=== PATIENT | female | born 1995 | race Two or more races ===

== ENCOUNTER 2020-01-16 04:58 | Emergency (ER) | payer SELFPAY ==
[2020-01-16 05:45] LABS: ABSOLUTE BASOPHILS # (AUTO) 0.1 10^3/uL (0.0-0.2); ABSOLUTE EOSINOPHILS # (AUTO) 0.1 10^3/uL (0.0-0.6); ABSOLUTE LYMPHOCYTES (AUTO) 3.5 10^3/uL (0.5-4.7); ABSOLUTE MONOCYTES (AUTO) 0.6 10^3/uL (0.1-1.4); ABSOLUTE NEUT (AUTO) 6.1 10^3/uL (1.7-8.2); BASOPHILS % (AUTO) 0.5 % (0-2); EOSINOPHILS % (AUTO) 0.9 % (0-6); HEMATOCRIT 36.4 % (36.0-47.0); LYMPHOCYTES % (AUTO) 33.6 % (13-45); MEAN CORPUSCULAR HEMOGLOBIN 28.2 pg (27.0-33.4); MEAN CORPUSCULAR HGB CONC 33.1 g/dL (32.0-36.0); MEAN CORPUSCULAR VOLUME 85 fl (80-97); MONOCYTES % (AUTO) 6.1 % (3-13); PLATELET COUNT 294 10^3/uL (150-450); RED BLOOD COUNT 4.27 10^6/uL (3.72-5.28); RED CELL DISTRIBUTION WIDTH 14.2 % (11.5-14.0); SEGMENTED NEUTROPHILS % (AUTO) 58.9 % (42-78); TOTAL CELLS COUNTED % (AUTO) 100 %; WHITE BLOOD COUNT 10.4 10^3/uL (4.0-10.5)
[2020-01-16 05:53] LABS: AMORPHOUS SEDIMENT,URINE TRACE /HPF; APPEARANCE,URINE CLOUDY; BILIRUBIN,URINE NEGATIVE (NEGATIVE); COLOR,URINE YELLOW; GLUCOSE, URINE NEGATIVE (NEGATIVE); KETONES,URINE NEGATIVE (NEGATIVE); LEUKOCYTE ESTERASE,URINE NEGATIVE (NEGATIVE); NITRITE,URINE NEGATIVE (NEGATIVE); PROTEIN,URINE NEGATIVE (NEGATIVE); URINE SPECIFIC GRAVITY 1.016; UROBILINOGEN,URINE NEGATIVE mg/dL (<2.0)
[2020-01-16 06:02] LABS: ALBUMIN 4.4 g/dL (3.5-5.0); ALKALINE PHOSPHATASE 96 U/L (38-126); ANION GAP 7 (5-19); ASPARTATE AMINO TRANSFERASE 51 U/L (14-36); BILIRUBIN,TOTAL 0.2 mg/dL (0.2-1.3); BLOOD UREA NITROGEN 14 mg/dL (7-20); CALCIUM 9.6 mg/dL (8.4-10.2); CARBON DIOXIDE 29 mmol/L (22-30); CHLORIDE 102 mmol/L (98-107); GLUCOSE 127 mg/dL (75-110); POTASSIUM 3.7 mmol/L (3.6-5.0); TOTAL PROTEIN 7.6 g/dL (6.3-8.2)
[2020-01-16] MEDS ORDERED: MORPHINE SULFATE 10 MG/ML INJ IV ONE (09:40)
[2020-01-16] MEDS ORDERED: ONDANSETRON HCL INJ/PF 4 MG/2 ML SDV IV ONE (09:41)
[2020-01-16] MEDS ORDERED: NORMAL SALINE 1000 ML 1,000 ML IV ONE (09:41)
--- NOTE | 2020-01-16 10:22 | RADIOLOGY REPORT (SQ) ---
EXAM DESCRIPTION: ACUTE ABDOMEN SERIES IMAGES COMPLETED DATE/TIME: 01/16/2020 10:03 am REASON FOR STUDY: ruq pain COMPARISON: None. NUMBER OF VIEWS: Three views. TECHNIQUE: Frontal chest, supine abdomen and upright/decubitus abdomen radiographic images acquired. LIMITATIONS: None. FINDINGS: CHEST: Lungs clear of infiltrates. FREE AIR: None. No abnormal gas collections. BOWEL GAS PATTERN: Nonobstructive pattern. Stool within the ascending colon and hepatic flexure. No dilated loops or air fluid levels. CALCIFICATIONS: No suspicious calcifications. HARDWARE: None in the abdomen. SOFT TISSUES: No gross mass or suggestion of organomegaly. BONES: No acute fracture. No worrisome bone lesions. OTHER: No other significant finding. IMPRESSION: Nonobstructive bowel gas pattern. Stool within the ascending colon and hepatic flexure. TECHNICAL DOCUMENTATION: JOB ID: [id number] 2010 [employer]- All Rights Reserved Reading location - IP/workstation name: [email or web address]
--- NOTE | 2020-01-16 10:48 | RADIOLOGY REPORT (SQ) ---
EXAM DESCRIPTION: U/S ABDOMEN COMPLETE W/DOPPLER IMAGES COMPLETED DATE/TIME: 01/16/2020 10:36 am REASON FOR STUDY: ruq pain/elevated lfts COMPARISON: None. TECHNIQUE: Dynamic and static grayscale images acquired of the abdomen and recorded on PACS. Additio nal selected color Doppler and spectral images recorded. Note: Study does not meet criteria for complete doppler/duplex scan LIMITATIONS: None. FINDINGS: PANCREAS: No masses. Visualized pancreatic duct normal caliber. LIVER: No masses. Diffuse increased echogenicity and coarsened echotexture. LIVER VASCULATURE: Normal directional flow of the main portal vein and hepatic veins. GALLBLADDER: Minimal pericholecystic fluid. Several gallstones. No appreciable gallbladder wall thi ckening. Negative sonographic Reynolds's sign. ULTRASOUND-DETECTED REYNOLDS'S SIGN: Negative. INTRAHEPATIC DUCTS AND COMMON DUCT: CBD and intrahepatic ducts normal caliber. No filling defects. INFERIOR VENA CAVA: Normal flow. AORTA: No aneurysm. RIGHT KIDNEY: Normal size. Normal echogenicity. No solid or suspicious masses. No hydronephros is. No calcifications. LEFT KIDNEY: Normal size. Normal echogenicity. No solid or suspicious masses. No hydronephrosi s. No calcifications. SPLEEN: Normal size. No solid masses. PERITONEAL AND PLEURAL SPACES: No ascites or effusions. OTHER: No other significant finding. IMPRESSION: Cholelithiasis. Minimal pericholecystic fluid common which early acute cholecystitis ca nnot be excluded. Hepatic steatosis. TECHNICAL DOCUMENTATION: JOB ID: [id number] 2010 [employer]- All Rights Reserved Reading location - IP/workstation name: [email or web address]
--- NOTE | 2020-01-16 12:36 | ER Document Report ---
Entered by RAYMOND STUBBS SCRIBE 01/16/20 0939 Acting as scribe for:SY VELAZQUEZ MD ED GI/ - General Chief Complaint: Abdominal Pain Stated Complaint: STOMACH PAIN Time Seen by Provider: 01/16/20 07:42 Information source: Patient Notes: This 24 year old female patient presents to the emergency department today with complaints of RUQ abdominal pain. Patient states the pain is 5/5, sharp, and began at 2 am this morning. Patient states last night there was no abdominal pain and her bowel movement was normal. Denies the pain radiating, nausea, fever, or cough. Patient states she had similar abdominal pain x2 months ago, it went away by itself, and did not do a follow up. Patient states she has not eaten this morning and has taken tylenol when her pain started. Patient states bowel movement and urinating does not relieve or exacerbate her abdominal pain. - Related Data Allergies/Adverse Reactions: No Known Allergies Allergy (Unverified 01/16/20 05:24) Past Medical History - General Information source: Patient - Social History Smoking Status: Never Smoker Cigarette use (# per day): No Chew tobacco use (# tins/day): No Frequency of alcohol use: None Drug Abuse: None Lives with: Family Family History: Reviewed & Not Pertinent Patient has homicidal ideation: No Past Surgical History: Reports: None Review of Systems - Review of Systems Constitutional: See HPI. denies: Fever EENT: No symptoms reported Cardiovascular: No symptoms reported Respiratory: See HPI. denies: Cough Gastrointestinal: See HPI, Abdominal pain - RUQ, Last bowel movement - yesterday , normal. denies: Nausea Genitourinary: See HPI Female Genitourinary: No symptoms reported Musculoskeletal: No symptoms reported Skin: No symptoms reported Hematologic/Lymphatic: No symptoms reported Neurological/Psychological: No symptoms reported -: Yes All other systems reviewed and negative Physical Exam - Vital signs Vitals: Temp Pulse Resp BP Pulse Ox 97.7 F 53 L 12 155/110 H 100 01/16/20 05:05 01/16/20 05:05 01/16/20 05:05 01/16/20 05:05 01/16/20 05:05 - General General appearance: Appears well, Alert - HEENT Head: Normocephalic, Atraumatic Eyes: Normal Pupils: PERRL - Respiratory Respiratory status: No respiratory distress Chest status: Nontender Breath sounds: Normal Chest palpation: Normal - Cardiovascular Rhythm: Regular Heart sounds: Normal auscultation Murmur: No - Abdominal Inspection: Normal Distension: No distension Bowel sounds: Normal Tenderness: Tender - RUQ. No: Guarding, Rebound - Back Back: Nontender - Extremities General upper extremity: Normal inspection. No: Edema General lower extremity: Normal inspection. No: Edema - Neurological Neuro grossly intact: Yes Cognition: Normal Orientation: AAOx4 Speech: Normal - Psychological Associated symptoms: Normal affect, Normal mood - Skin Skin Temperature: Warm Skin Moisture: Dry Skin Color: Normal Course - Re-evaluation Re-evalutation: 01/16/20 12:14 Patient reports that she is pain-free at this time. - Vital Signs Vital signs: Temp Pulse Resp BP Pulse Ox 97.9 F 67 12 109/66 98 01/16/20 09:51 01/16/20 09:51 01/16/20 05:05 01/16/20 09:51 01/16/20 09:51 01/16/20 12:14 Vital signs stable afebrile no acute process no complaints of abdominal pain nausea or vomiting at this time. - Laboratory Result Diagrams: 01/16/20 05:10 01/16/20 05:10 Laboratory results interpreted by me: 01/16/20 01/16/20 05:10 05:10 RDW 14.2 H Glucose 127 H AST 51 H ALT 95 H 01/16/20 12:15 Williams shows mild elevation in AST ALT. Patient's glucose of 127. Patient has a normal white blood cell count and is afebrile. Patient does have gallbladder biliary stones present no wall thickening and a minimal amount of pericholecystic fluid surrounding the gallbladder. There is no ductal dilatation to speak of. Patient has a normal white blood cell count. Patient does have a biliary colic and gallstones present and should follow-up with them surgeon to discuss further planning and management if there is any need to have surgery and to have it scheduled if indicated. Advised patient to follow a low- fat diet. - Diagnostic Test Radiology reviewed: Image reviewed, Reports reviewed Radiology results interpreted by me: 01/16/20 12:17 Acute abdominal series shows no acute process chest clear no infiltrates abdomen shows no acute process moderate stool noted in the ascending colon and at the ectatic flexure. No obstruction no free air. No stones seen. 01/16/20 12:17 Gallbladder ultrasound shows a gallbladder stones without obstruction, cholelithiasis. There is minimal fluid to suggest any pericholecystic fluid. No obstruction noted. Discharge - Discharge Clinical Impression: Biliary colic, Cholelithiasis, LFT elevation Condition: Stable Disposition: HOME, SELF-CARE Instructions: Gallbladder Disease ([facility]), Oral Narcotic Medication ([facility]) Prescriptions: Tramadol HCl [Ultram 50 mg Tablet] 50 mg PO Q4HP PRN #12 tab PRN Reason: Ondansetron [Zofran Odt 4 mg Tablet] 1 - 2 tab PO Q4H PRN #15 tab.rapdis PRN Reason: For Nausea/Vomiting I personally performed the services described in the documentation, reviewed and edited the documentation which was dictated to the scribe in my presence, and it accurately records my words and actions.
[2020-01-16 13:07] VITALS: BP 104/74
== END 2020-01-16 13:06 | disposition home or self-care (01) ==
LOC: ER 04:58
DX: K80.20 Calculus of gallbladder without cholecystitis without obstruction (principal); R74.0 Nonspecific elevation of levels of transaminase and lactic acid dehydrogenase [LDH]; R10.11 Right upper quadrant pain; R10.811 Right upper quadrant abdominal tenderness
CPT/HCPCS: 99284; 96361; 96374; 96375; 36415; 83690; 85025; 80053; 81001; 74022; 76700; 93976; J2270; J2405; J7030

== ENCOUNTER 2020-07-17 23:30 | Emergency (ER) | payer SELFPAY ==
[2020-07-18 01:47] LABS: APPEARANCE,URINE SLIGHTLY-CLOUDY; BILIRUBIN,URINE NEGATIVE (NEGATIVE); COLOR,URINE YELLOW; GLUCOSE, URINE NEGATIVE (NEGATIVE); KETONES,URINE NEGATIVE (NEGATIVE); LEUKOCYTE ESTERASE,URINE SMALL (NEGATIVE); NITRITE,URINE NEGATIVE (NEGATIVE); PROTEIN,URINE NEGATIVE (NEGATIVE); URINE SPECIFIC GRAVITY 1.029; UROBILINOGEN,URINE NEGATIVE mg/dL (<2.0)
[2020-07-18 01:48] LABS: ABSOLUTE BASOPHILS # (AUTO) 0.1 10^3/uL (0.0-0.2); ABSOLUTE EOSINOPHILS # (AUTO) 0.1 10^3/uL (0.0-0.6); ABSOLUTE LYMPHOCYTES (AUTO) 2.8 10^3/uL (0.5-4.7); ABSOLUTE MONOCYTES (AUTO) 0.5 10^3/uL (0.1-1.4); ABSOLUTE NEUT (AUTO) 8.1 10^3/uL (1.7-8.2); BASOPHILS % (AUTO) 0.5 % (0-2); EOSINOPHILS % (AUTO) 0.5 % (0-6); HEMATOCRIT 37.5 % (36.0-47.0); HEMOGLOBIN 12.4 g/dL (12.0-15.5); MEAN CORPUSCULAR HGB CONC 33.1 g/dL (32.0-36.0); MEAN CORPUSCULAR VOLUME 85 fl (80-97); MONOCYTES % (AUTO) 4.6 % (3-13); PLATELET COUNT 285 10^3/uL (150-450); RED BLOOD COUNT 4.44 10^6/uL (3.72-5.28); RED CELL DISTRIBUTION WIDTH 14.3 % (11.5-14.0); SEGMENTED NEUTROPHILS % (AUTO) 70.4 % (42-78); TOTAL CELLS COUNTED % (AUTO) 100 %; WHITE BLOOD COUNT 11.5 10^3/uL (4.0-10.5)
[2020-07-18 02:03] LABS: ALBUMIN 4.5 g/dL (3.5-5.0); ALKALINE PHOSPHATASE 81 U/L (38-126); ANION GAP 7 (5-19); ASPARTATE AMINO TRANSFERASE 49 U/L (14-36); BILIRUBIN,DIRECT 0.2 mg/dL (0.0-0.4); BILIRUBIN,TOTAL 0.3 mg/dL (0.2-1.3); BLOOD UREA NITROGEN 16 mg/dL (7-20); CALCIUM 9.9 mg/dL (8.4-10.2); CARBON DIOXIDE 29 mmol/L (22-30); CHLORIDE 104 mmol/L (98-107); GLUCOSE 116 mg/dL (75-110); POTASSIUM 4.1 mmol/L (3.6-5.0); TOTAL PROTEIN 7.8 g/dL (6.3-8.2)
[2020-07-18] MEDS ORDERED: MORPHINE SULFATE 10 MG/ML INJ IV ONE (05:25)
--- NOTE | 2020-07-18 05:26 | ER Document Report ---
ED GI/ - General Chief Complaint: Abdominal Pain Stated Complaint: STOMACH PAIN Time Seen by Provider: 07/18/20 05:18 Primary Care Provider: HUGH ALBA MD [ACTIVE STAFF] - Follow up as needed Mode of Arrival: Ambulatory Information source: Patient Notes: 25-year-old female presents to the emergency room complaining of worsening right upper quadrant pain since Saturday. States she was seen here last January was told she had cholelithiasis and will need to follow-up outpatient with a general surgeon. States she has been unable to follow-up due to lack of insurance. Was prescribed tramadol which she states she has been taking without relief. Complains of nausea but no vomiting. No fevers. No urinary symptoms. No COVID-19 exposure. TRAVEL OUTSIDE OF THE [place] IN LAST 30 DAYS: No - Related Data Allergies/Adverse Reactions: No Known Allergies Allergy (Unverified 01/16/20 05:24) Home Medications: Tramdol Past Medical History - General Information source: Patient - Social History Smoking Status: Never Smoker Frequency of alcohol use: None Drug Abuse: None Family History: Reviewed & Not Pertinent Patient has homicidal ideation: No Review of Systems - Review of Systems Constitutional: No symptoms reported EENT: No symptoms reported Cardiovascular: No symptoms reported Respiratory: No symptoms reported Gastrointestinal: Abdominal pain, Nausea. denies: Diarrhea, Vomiting Musculoskeletal: No symptoms reported Skin: No symptoms reported Neurological/Psychological: No symptoms reported -: Yes All other systems reviewed and negative Physical Exam - Vital signs Vitals: Temp Pulse BP Pulse Ox 98.1 F 61 170/98 H 100 07/18/20 00:04 07/18/20 00:04 07/18/20 00:04 07/18/20 00:04 - General General appearance: Appears well, Alert In distress: Mild - Respiratory Respiratory status: No respiratory distress Chest status: Nontender Breath sounds: Normal Chest palpation: Normal - Cardiovascular Rhythm: Regular Heart sounds: Normal auscultation Murmur: No - Abdominal Inspection: Normal Distension: No distension Bowel sounds: Normal Tenderness: Tender - Tenderness on palpation to the right upper quadrant.. No: McBurney's point, Reynolds's sign, Guarding Organomegaly: No organomegaly - Back Back: Normal, Nontender. No: CVA tenderness - Neurological Neuro grossly intact: Yes Cognition: Normal Orientation: AAOx4 Ilana Coma Scale Eye Opening: Spontaneous [place] Coma Scale Verbal: Oriented [place] Coma Scale Motor: Obeys Commands Ilana Coma Scale Total: 15 Speech: Normal Motor strength normal: LUE, RUE, LLE, RLE Sensory: Normal - Skin Skin Temperature: Warm Skin Moisture: Dry Skin Color: Normal Course - Re-evaluation Re-evalutation: 07/18/20 06:59 : Patient is resting comfortably she is pain-free on exam. She denies any pain. Patient was counseled that she needs to follow-up outpatient with a general surgery to discuss removal of her gallbladder as an outpatient. On-call physician was provided. Counseled patient that her ultrasound is unchanged and her labs have actually improved since last summer. She was counseled to avoid greasy foods, fried foods, no heavy sauces. Tylenol or Motrin for pain. Take Zofran as needed for nausea. Patient was given strict return to the emergency room guidelines. Return for any new or worsening symptoms. All questions were answered. Patient verbalized understanding and agrees with plan of care. 07/18/20 07:02 07/18/20 07:05 - Vital Signs Vital signs: Temp Pulse Resp BP Pulse Ox 97.5 F 75 14 130/72 H 100 07/18/20 05:19 07/18/20 05:19 07/18/20 05:19 07/18/20 05:19 07/18/20 05:19 - Laboratory Results Result Diagrams: 07/18/20 01:28 07/18/20 01:28 Laboratory Results Interpreted: 07/18/20 07/18/20 07/18/20 01:28 01:28 01:28 WBC 11.5 H RDW 14.3 H Glucose 116 H AST 49 H ALT 87 H Urine Blood LARGE H Ur Leukocyte Esterase SMALL H Urine Ascorbic Acid 40 H Critical Laboratory Results Reviewed: No Critical Results - Radiology Results Critical Radiology Results Reviewed: No Critical Results Discharge - Discharge Clinical Impression: Cholelithiasis Qualifiers: Cholelithiasis location: gallbladder Cholecystitis presence: with cholecystitis Cholecystitis acuity: chronic Biliary obstruction: without biliary obstruction Qualified Code(s): K80.10 - Calculus of gallbladder with chronic cholecystitis without obstruction Condition: Stable Disposition: HOME, SELF-CARE Instructions: Gallbladder Disease ([facility]), Low-Fat Diet ([facility]) Additional Instructions: Avoid any spicy foods, greasy foods, no fried foods. Outpatient follow-up with general surgery as discussed. Tylenol or Motrin for pain. Return to emergency room for any new or worsening symptoms. Prescriptions: Ondansetron [Zofran Odt 4 mg Tablet] 1 tab PO Q4H PRN #15 tab.rapdis PRN Reason: For Nausea/Vomiting Referrals: HUGH ALBA MD [ACTIVE STAFF] - Follow up as needed
--- NOTE | 2020-07-18 06:53 | RADIOLOGY REPORT (SQ) ---
US ABDOMEN DOPPLER LIMITED CLINICAL STATEMENT: ruq pain COMPARISON: 01/16/2020 FINDINGS: Pancreas is within normal limits. Aorta and IVC are within normal limits. Liver is mildly diffusely echogenic consistent with fatty infiltration with no focal hepatic lesions. No right upper quadrant ascites. Portal vein is patent with hepatopedal flow. Gallbladder is mildly distended. There is evidence for calculi in the gallbladder. Mild gallbladder wall thickening/pericholecystic edema. No biliary dilatation with CBD measuring 2 to 3 mm. No right hydronephrosis. No right upper quadrant ascites. IMPRESSION: Cholelithiasis. Findings may represent acute cholecystitis. No biliary dilatation.
[2020-07-18 08:03] VITALS: BP 114/70
== END 2020-07-18 07:30 | disposition home or self-care (01) ==
LOC: ER 23:30
DX: K80.20 Calculus of gallbladder without cholecystitis without obstruction (principal); R10.11 Right upper quadrant pain; R10.811 Right upper quadrant abdominal tenderness; R11.0 Nausea; Z79.899 Other long term (current) drug therapy
CPT/HCPCS: 99285; 96374; 36415; 83690; 85025; 81025; 80053; 81001; 76705; 93976; J2270